=== PATIENT | female | born 2000 | race Caucasian/White ===

== ENCOUNTER → 2024-05-15 13:05 | Outpatient (REF) | payer OTHER, SELFPAY | LOC: CLAB 13:05 | PROVIDERS: ATTENDING PHYSICIAN Otolaryngology | DX: H65.03 Acute serous otitis media, bilateral (principal) | CPT/HCPCS: 87070; 87077; 87186 ==

== ENCOUNTER → 2025-07-22 06:39 | Outpatient (REF) | payer OTHER, SELFPAY | LOC: MRI 3T 06:39 | PROVIDERS: ATTENDING PHYSICIAN Physician Assistant; FAMILY PHYSICIAN Family Medicine | DX: G44.52 New daily persistent headache (NDPH) (principal); Z85.840 Personal history of malignant neoplasm of eye; S05.50XA Penetrating wound with foreign body of unspecified eyeball, initial encounter | CPT/HCPCS: 70030 ==